=== PATIENT | male | born 1960 | race Caucasian/White ===

== ENCOUNTER 2019-04-12 17:59 | Emergency (ER) | payer MEDICARE ==
[~2019-04-12] VITALS: Ht 177.8 cm; Wt 85.1 kg
[~2019-04-12 17:59] MED LIST: ALBU1.25 NEB; IPRA0.2S35 INH; LISI5TAB7 PO; MONT10TA9 PO
[2019-04-12 18:03] VITALS: BP 149/84
--- NOTE | 2019-04-12 19:11 | NUR ---
Patient/Caregiver given discharge instructions and they have confirmed that they understand the instructions. Patient ambulatory with steady gait.
== END 2019-04-12 19:15 | disposition home or self-care (01) ==
LOC: ED 19:11
DX: S62.101A Fracture of unspecified carpal bone, right wrist, initial encounter for closed fracture (principal); J45.909 Unspecified asthma, uncomplicated; V03.10XA Pedestrian on foot injured in collision with car, pick-up truck or van in traffic accident, initial encounter; Y93.89 Activity, other specified; Y92.89 Other specified places as the place of occurrence of the external cause; Y99.8 Other external cause status
CPT/HCPCS: 29125; 99283